=== PATIENT | male | born 1950 | race Hispanic/Latino ===

== ENCOUNTER 2018-08-18 07:14 | Emergency (ER) | payer SELFPAY ==
[2018-08-18] MEDS ORDERED: Sodium Chloride 0.9% 1,000 ML ONE (07:53)
[2018-08-18 07:55] LABS: #Basophils 0.1 thou/uL (0.0-0.2); #Eosinphils 0.2 thou/uL (0.0-0.7); #Lymphocytes 2.7 thou/uL (1.20-3.40); #Monocytes 0.6 thou/uL (0.11-0.59); #Neutrophils 4.7 thou/uL (1.40-6.50); %Basophils 0.8 % (0.0-1.0); %Eosinophils 2.9 % (0.0-10.0); %Lymphocytes 32.3 % (21.0-51.0); %Monocytes 7.6 % (0.0-10.0); %Neutrophils 56.3 % (42.0-75.0); Hemoglobin 14.7 g/dL (14.0-18.0); Mean Corpuscular HGB CONC 32.4 g/dL (32.0-36.0); Mean Corpuscular Hemoglobin 29.5 pg (27.0-31.0); Platelet Count 229 thou/uL (130-400); RBC Distribution Width 11.4 % (11.5-14.5); White Blood Cell (WBC) Count 8.4 thou/uL (4.8-10.8)
[2018-08-18 08:11] LABS: CKMB 0.8 ng/mL (0-6.6); Troponin I Less than 0.010 ng/mL (< 0.028)
[2018-08-18 08:13] LABS: ALT (SGPT) 53 U/L (8-55); AST (SGOT) 31 U/L (5-34); Albumin 3.9 g/dL (3.4-4.8); Alkaline Phosphatase 85 U/L (40-150); Anion Gap 13 mmol/L (10-20); BUN (Urea Nitrogen) 17 mg/dL (8.4-25.7); Bilirubin, Total 0.4 mg/dL (0.2-1.2); CK (CPK) 63 U/L (30-200); Calc. Creatinine Clearance 0 mL/min (70-130); Calcium 9.7 mg/dL (7.8-10.44); Carbon Dioxide 23 mmol/L (23-31); Chloride 105 mmol/L (98-107); Estimated GFR-MDRD Greater than 90; Globulin 2.9 g/dL (2.4-3.5); Glucose 183 mg/dL (80-115); Lipase 49 U/L (8-78); Protein, Total 6.8 g/dL (5.8-8.1); Sodium 137 mmol/L (136-145)
[2018-08-18 08:33] LABS: Bilirubin Negative (Negative); Blood, Urine Negative (Negative); Clarity Clear (Clear); Glucose, Urine (Dipstick) 100 mg/dL (Negative); Leukocyte Negative (Negative); Nitrite Negative (Negative); Protein, Urine (Dipstick) Negative (Neg-Trace); Urobilinogen 0.2 mg/dL (0.2-1.0); pH, Urine 5.5 (5.0-9.0)
[2018-08-18] MEDS ORDERED: Iopamidol 200 41% 50 ML VIAL FS ONE (09:00)
[2018-08-18] MEDS ORDERED: Iopamidol 370 76% 100 ML VIAL ONE (09:00)
--- NOTE | 2018-08-18 09:37 | CT ---
CT ABDOMEN AND PELVIS WITH IV CONTRAST: Date: 08/18/18 INDICATION: History of abdominal pain. COMPARISON: None. FINDINGS: There is bibasilar atelectasis. There is fatty infiltration of the liver. There is a small cyst withi n the right hepatic lobe. Pancreas, adrenal glands, and spleen appear within normal limits. There are bilateral renal cysts. The largest cyst is seen within the inferior pole of the right kidney, measur ing 3.3 cm. No hydronephrosis is evident. No enlarged lymph nodes are evident. There is scattered div erticula involving the colon without definite evidence of active diverticulitis. There is a mild amou nt of retained stool within the colon. Small bowel is of normal caliber. There is normal appendix in the right lower quadrant. No free fluid is evident. There is scattered degenerative change. IMPRESSION: No CT explanation for the patient's abdominal pain. POS: [facility]
== END 2018-08-18 09:45 | disposition home or self-care (01) ==
LOC: NAV ERS 07:14
DX: K57.30 Diverticulosis of large intestine without perforation or abscess without bleeding (principal); B02.9 Zoster without complications; R19.7 Diarrhea, unspecified; I10 Essential (primary) hypertension; F41.9 Anxiety disorder, unspecified; Z79.84 Long term (current) use of oral hypoglycemic drugs; Z79.899 Other long term (current) drug therapy
CPT/HCPCS: 74177; 80053; 81003; 82553; 83690; 84484; 85025; 93005; J7050